=== PATIENT | female | born 1960 | race Caucasian/White ===

== ENCOUNTER 2023-07-26 19:31 | Observation (INO) | payer OTHER, SELFPAY ==
--- NOTE | ~2023-07-26 | MR_ITS ---
MRI of the brain Clinical History: Speech disturbance Technique: Axial and sagittal T1-weighted images were acquired. These were followed by axial T2-weigh erlinda, diffusion weighted, gradient, and FLAIR images. Findings: There is small focal area of restricted diffusion in the right cerebellum, compatible with acute infarct. There is additional probable small focal infarct in the right basal ganglia. No other abnormal signal seen in the brain parenchyma. Ventricles and subarachnoid spaces are unremarkable. Orbits are unremarkable. Paranasal sinuses and m astoid air cells are essentially clear. Major intracranial flow voids are intact. Sagittal midline structures are intact. IMPRESSION: Focal acute infarct in the right cerebellum, with additional probable very small focal acute infarct in the right basal ganglia. Reviewed, dictated and finalized at location M. RNAL [employer]INE SUBASSEMBLER IMPRESSION: Focal acute infarct in the right cerebellum, with additional probable very smal l focal acute infarct in the right basal ganglia.
--- NOTE | ~2023-07-26 | XR_ITS ---
EXAMINATION: XR chest 1V portable DATE: 07/26/2023 20:10 INDICATION: Slurred speech. Neurologic deficits. TECHNIQUE: frontal view of the chest was obtained. COMPARISON: Chest radiograph and CT dated 08/14/2006 FINDINGS: Calcified nodule at the left lower lung zone. No focal airspace opacities, pulmonary edema, pleural e ffusion or pneumothorax. The cardiomediastinal silhouette is normal. Bilateral breast implants. IMPRESSION: 1. No acute cardiopulmonary disease. Reviewed, dictated and finalized at location A. N'S LACROSSE COACH
--- NOTE | ~2023-07-26 | CT_ITS ---
EXAMINATION: CTA BRAIN/CAROTID DATE: 07/26/2023 20:31 INDICATION: Stroke presenting with slurred speech and neurologic deficits TECHNIQUE: Computed tomographic angiography (CTA) of the head and neck was performed with 100 mL Omni paque-350 intravenous contrast. Multiplanar reconstructions and maximum intensity projection 3D-recon structions of the carotid arteries and of the intracranial arteries were created by the technologist on a separate workstation. Precontrast CT of the head was also obtained. Automated exposure control and iterative reconstruction technique were employed.The dose-length product was 1595.78 mGy-cm. COMPARISON: None. FINDINGS: Carotid arteries: Small amount of nonhemodynamically significant atherosclerotic plaque at the normal caliber aortic ar ch and at the great vessels arising from the arch with no hemodynamically significant stenosis. No di ssection. There is 60% stenosis of the right carotid bulb relative to normal distal artery lumen diam eter (NASCET criteria). There is small amount of atherosclerotic plaque with 0% stenosis of the left carotid bulb relative to normal distal artery lumen diameter. Mild emphysema at the visualized upper lungs. Visualized superior mediastinum and cervical soft tissues are unremarkable. Postoperative arguelles ges with metallic devices at the C5-C6 and C6-C7 disc spaces with appearance favoring prosthetic disk s over anterior final fusion. Correlate with surgical history. Head: No acute intracranial hemorrhage, acute infarction or abnormal extra axial fluid collection. There is mild scattered white matter hypoattenuation consistent with chronic small vessel ischemic disease. V entricles are normal and symmetric. No mass/mass effect. No abnormally enhancing brain lesions identi fied. Orbits are normal. Mucosal thickening in the right maxillary and left ethmoid sinuses. Bilatera l mastoids are hyperpneumatized. Intracranial arteries The right vertebral artery is dominant. There is a moderate stenosis at the distal left vertebral art abi near its junction with the basilar artery. There is no hemodynamically significant stenosis in th e right vertebral basilar arteries. Atherosclerotic plaque at the bilateral carotid siphons with mult ifocal <50% stenosis. There are no aneurysms identified. Both A1 and P1 segments are patent. There i s also a patent anterior communicating artery. Cerebral arterial arborization appears symmetric. IMPRESSION: 1. 60% stenosis of the right carotid bulb relative to normal distal artery lumen diameter (NASCET cri teria). 2. Small amount of atherosclerotic plaque with 0% stenosis of the left carotid bulb relative to kacie l distal artery lumen diameter. 3. Right vertebral artery is dominant with moderate 50-70% stenosis at the distal left vertebral javier ry. 4. Atherosclerotic plaque with no hemodynamically significant stenosis at the bilateral carotid bulbs . 5. No acute intracranial process. 6. Mild emphysema. Reviewed, dictated and finalized at location A. E HAND IMPRESSION: 1. 60% stenosis of the right carotid bulb relative to normal distal artery lume n diameter (NASCET criteria). 2. Small amount of atherosclerotic plaque with 0% stenosis of the left carotid bulb relative to normal distal artery lumen diameter. 3. Right vertebral artery is dominant with moderate 50-70% stenosis at the dist al left vertebral artery. 4. Atherosclerotic plaque with no hemodynamically significant stenosis at the b ilateral carotid bulbs. 5. No acute intracranial process. 6. Mild emphysema.
[2023-07-26 19:28] VITALS: BP 207/96; PULSE 109; RESP 15; TEMP 36.9; O2SAT 96
[2023-07-26 19:29] VITALS: BP 183/80; PULSE 91; RESP 15; O2SAT 96
--- NOTE | 2023-07-26 19:39 | ECG_ITS ---
Measurements Intervals [place] Rate: 104 P: 74 PA: 133 QRS: 40 QRSD: 87 T: 72 QT: 350 QTc: 461 Interpretive Statements SINUS TACHYCARDIA OTHERWISE NORMAL ECG NO PREVIOUS ECG AVAILABLE FOR COMPARISON Electronically Signed On 07-27-2023 16:53:42 MED AIDE by Carlos Manuel Rodrigez M.D.
[2023-07-26 19:43] LABS: Glucose Point of Care 359 mg/dl (65-105)
[2023-07-26 19:54] LABS: Basophils Absolute Auto 0.1 K/mm3 (0.0-0.1); Basophils Percent Auto 1.1 % (0.2-1.2); Eosinophils Absolute Auto 0.3 K/mm3 (0-0.3); Eosinophils Percent Auto 2.1 % (0-4.4); Hemoglobin 13.6 g/dL (12.0-15.0); Immature Granulocyte Absolute 0.04 K/mm3 (0.00-0.031); Immature Granulocyte Percent A 0.3 % (0-0.5); Lymphocytes Absolute Auto 3.11 K/mm3 (0.9-3.2); Mean Corpuscular HGB Conc 33.2 g/dl (32-36); Mean Corpuscular Hemoglobin 32.4 pg (26-34); Mean Corpuscular Volume 97.6 fl (80-100); Mean Platelet Volume 10.3 fl (7.4-10.4); Monocytes Absolute Auto 0.7 K/mm3 (0.1-0.6); Monocytes Percent Auto 5.7 % (2.6-8.5); Neutrophils Absolute Auto 7.8 K/mm3 (1.3-6.7); Neutrophils Percent Auto 64.8 % (45.5-73.1); Platelet Count Result 296 k/mm3 (150-375); Red Cell Distribution Width 12.7 % (11.5-14.5)
--- NOTE | 2023-07-26 20:00 | ED.NEUROSD ---
HPI - Neuro Symptoms/Deficit General Chief Complaint: Neuro Symptoms/Deficit Stated Complaint: SLURRED SPEECH X 3 DAYS History of Present Illness HPI Narrative: patient brought to the emergency department by EMS from home. She notes for the past 3 days she has had slurred speech. Denies numbness or weakness. She had a stroke a year ago and since then she has had intermittent dizziness and leaning to the left. She also has chronic right arm paresthesias. Pt has a history of diabetes hypertension and smokes a pack cigarettes a day. She was diagnosed with an ischemic stroke a year ago. She called her primary care doctor's office today to be seen in a recommended she come to the emergency department Related Data Allergies Allergy/AdvReac Type Severity Reaction Status Date / Time codeine Allergy Mild Verified 11/28/08 11:46 Review of Systems Review of Systems: review of systems negative except what is documented in the HPI Exam Narrative: GENERAL: Well-appearing, well-nourished, and in no acute distress. HEAD: Normocephalic, atraumatic. EYES: PERRLA and EOMI. ENT: Nares clear, no rhinorrhea or epistaxis. Mucous membranes moist. NECK: Supple. CHEST: Clear to auscultation. No respiratory distress. HEART: Regular rate and rhythm. ABDOMEN: Soft, nontender, nondistended. EXTREMITIES: Normal range of motion. No edema. SKIN: Warm, dry, no rash. NEURO: No focal deficits. Alert and oriented x3. speech slurred, no facial droop, strength 4/5 bilateral upper extremities, no sensation deficit on exam, strength 4/5 left lower extremity 5/5 right lower extremity. [id number] normal PSYCH: Normal mood and affect. Course Vital Signs Vital signs: Vital Signs Temperature 36.9 C 07/26/23 19:28 Pulse Rate 109 H 07/26/23 19:28 Respiratory Rate 15 07/26/23 19:28 Blood Pressure 207/96 H 07/26/23 19:28 Pulse Oximetry 96 07/26/23 19:28 Oxygen Delivery Room Air 07/26/23 19:28 Temperature 36.9 C 07/26/23 19:28 Pulse Rate 91 07/26/23 19:29 Respiratory Rate 15 07/26/23 19:29 Blood Pressure 183/80 H 07/26/23 19:29 Pulse Oximetry 96 07/26/23 19:29 Oxygen Delivery Room Air 07/26/23 19:28 MDM - Neuro Symptoms/Deficit MDM Narrative Medical decision making narrative: CT head negative. Patient's symptoms have been persistent for the past 3 days not worsening while in the emergency department. Discussed admission with hospitalist and she requests that I consult Neurology. There is no Neurology and house until 7:00 a.m. tomorrow morning. Neurologist at [facility] states that my workup was thorough and he agrees patient can stay here until tomorrow morning. Patient admitted to the hospitalist Lab Data 07/26/23 19:44 07/26/23 19:44 Labs: Lab Results 07/26/23 07/26/23 Range/Units 19:39 19:44 WBC 12.0 H (4.5-10.0) K/mm3 RBC 4.20 (4.2-5.4) M/mm3 Hgb 13.6 (12.0-15.0) g/dL Hct 41.0 (37.0-47.0) % MCV 97.6 (80-100) fl MCH 32.4 (26-34) pg MCHC 33.2 (32-36) g/dl RDW 12.7 (11.5-14.5) % Plt Count 296 (150-375) k/mm3 MPV 10.3 (7.4-10.4) fl Immature Gran % (Auto) 0.3 (0-0.5) % Neut % (Auto) 64.8 (45.5-73.1) % Lymph % (Auto) 26.0 (18.3-44.2) % Kittson % (Auto) 5.7 (2.6-8.5) % Eos % (Auto) 2.1 (0-4.4) % Baso % (Auto) 1.1 (0.2-1.2) % Lymph # (Auto) 3.11 (0.9-3.2) K/mm3 Kittson # (Auto) 0.7 H (0.1-0.6) K/mm3 Eos # (Auto) 0.3 (0-0.3) K/mm3 Baso # (Auto) 0.1 (0.0-0.1) K/mm3 Abs Immat Gran (auto) 0.04 H (0.00-0.031) K/mm3 Absolute Neuts (auto) 7.8 H (1.3-6.7) K/mm3 Absolute Nucleated RBC 0.0 (0.0-0.012) K/mm3 Nucleated RBC % 0.0 (0.0-0.2) % PT 12.3 (11.1-14.7) Seconds INR 0.9 APTT 31.1 (22.3-36.8) SECONDS Sodium 134 L (137-145) mmol/L Potassium 4.0 (3.4-5.0) mmol/L Chloride 98 (98-107) mmol/L Carbon Dioxide 28 (22-30) mmol/L Anio
[2023-07-26 20:05] LABS: Alanine Aminotransferase 38 U/L (6-35); Albumin Level 4.2 g/dL (3.5-5.1); Alkaline Phosphatase 104 U/L (38-126); Anion Gap 8 mmol/L (8-16); Aspartate Amino Transferase 26 U/L (14-36); Bilirubin,Total 0.4 mg/dL (0.2-1.3); Blood Urea Nitrogen 18 mg/dL (7-17); Calcium 9.2 mg/dL (8.4-10.2); Carbon Dioxide 28 mmol/L (22-30); Chloride 98 mmol/L (98-107); Estimated CRCL calculation 75 ml/min; Estimated Glomerular Filt Rate > 60; Glucose 358 mg/dL (65-110); Sodium 134 mmol/L (137-145)
[2023-07-26 20:09] LABS: INR 0.9; Prothrombin Time 12.3 Seconds (11.1-14.7)
[2023-07-26 20:10] LABS: Partial Thromboplastin Time 31.1 SECONDS (22.3-36.8)
[2023-07-26 20:17] LABS: Troponin I < 0.012 ng/mL (0.000-0.034)
[2023-07-26] MEDS: LABETALOL HCL INJ 100 MG/20 ML VIAL 10 MG IV PUSH (20:30)
[2023-07-26] MEDS: ASPIRIN 81 MG CHEWABLE TABLET 324 MG PO (20:30)
--- NOTE | 2023-07-27 00:03 | PM.IMHP ---
H&P: HPI History of Present Illness Date/Time: 07/27/23 00:03 Chief Complaint: Speech Narrative: This is a 62 yo female with PMHx significant for Tobacco dependence, ETOH dependence, insulin dependent diabetes mellitus, HTN.Patient presents to ED due to a speech disturbance patient has had is liver speech for 4 days, denies any focal sensorimotor deficit however states that has had some gait disturbance which has been present for the last few weeks has been talked about a with her primary care physician yesterday she was prompted to come in by her primary care physician after her speech disturbance. Patient denies any tremors, denies loss of consciousness, denies vision loss, has had a headache, no fevers, no rigors, no chills, no cough, no sputum production, no pain or burning with urination, no nausea no vomiting no diarrhea no abdominal pain no leg swelling no palpitations no shortness of breath. Preliminary workup has been essentially nonrevealing. EXAMINATION: XR chest 1V portable DATE: 07/26/2023 20:10 INDICATION: Slurred speech. Neurologic deficits. TECHNIQUE: frontal view of the chest was obtained. COMPARISON: Chest radiograph and CT dated 08/14/2006 FINDINGS: Calcified nodule at the left lower lung zone. No focal airspace opacities, pulmonary edema, pleural effusion or pneumothorax. The cardiomediastinal silhouette is normal. Bilateral breast implants. IMPRESSION: 1. No acute cardiopulmonary disease. EXAMINATION: CTA BRAIN/CAROTID DATE: 07/26/2023 20:31 INDICATION: Stroke presenting with slurred speech and neurologic deficits TECHNIQUE: Computed tomographic angiography (CTA) of the head and neck was performed with 100 mL Omnipaque-350 intravenous contrast. Multiplanar reconstructions and maximum intensity projection 3D-reconstructions of the carotid arteries and of the intracranial arteries were created by the technologist on a separate workstation. Precontrast CT of the head was also obtained.? Automated exposure control and iterative reconstruction technique were employed.The dose-length product was 1595.78 mGy-cm. COMPARISON: None. ? FINDINGS: Carotid arteries: Small amount of nonhemodynamically significant atherosclerotic plaque at the normal caliber aortic arch and at the great vessels arising from the arch with no hemodynamically significant stenosis. No dissection. There is 60% stenosis of the right carotid bulb relative to normal distal artery lumen diameter (NASCET criteria). There is small amount of atherosclerotic plaque with 0% stenosis of the left carotid bulb relative to normal distal artery lumen diameter. Mild emphysema at the visualized upper lungs. Visualized superior mediastinum and cervical soft tissues are unremarkable. Postoperative changes with metallic devices at the C5-C6 and C6-C7 disc spaces with appearance favoring prosthetic disks over anterior final fusion. Correlate with surgical history. Head: No acute intracranial hemorrhage, acute infarction or abnormal extra axial fluid collection. There is mild scattered white matter hypoattenuation consistent with chronic small vessel ischemic disease. Ventricles are normal and symmetric. No mass/mass effect. No abnormally enhancing brain lesions identified. Orbits are normal. Mucosal thickening in the right maxillary and left ethmoid sinuses. Bilateral mastoids are hyperpneumatized. Intracranial arteries The right vertebral artery is dominant. There is a moderate stenosis at the distal left vertebral artery near its junction with the basilar artery. There is no hemodynamically significant stenosis in the right vertebral basilar arteries. Atherosclerotic plaque at the bilateral carotid siphons with multifocal <50% stenosis. There are no aneurysms identified.? Both A1 and P1 segments are patent. There is also a patent anterior communicating artery. Cerebral arterial arborization appears symmetric. IMPRESSION: 1. 60% stenosis of the right carotid bulb relat
[2023-07-27 03:06] VITALS: PULSE 103; RESP 15; O2SAT 96
--- NOTE | 2023-07-27 03:15 | ADMGEN ---
This patient, Irene Garcia, was admitted to [facility] Surg Room 304-01. Patient/family oriented to hospital policies and general routines including ID bracelet, bed and alarms, visiting hours, pain management, procedures, bathroom and other care routines, personal items, smoking policy, room service/diet, and visiting hours. Information on how to activate the Rapid Response Team has been discussed. Patient/Family are encouraged to report perceived risks to care and to ask questions if they do not understand what they are told or what they should do.
[2023-07-27 03:28] VITALS: BP 149/64; PULSE 89; RESP 18; TEMP 36.8; O2SAT 95; BMI 19.7
[2023-07-27 04:00] VITALS: PULSE 87
[2023-07-27 06:00] VITALS: BP 151/49; PULSE 89; RESP 18; TEMP 36.7; O2SAT 92
[2023-07-27 07:50] LABS: Glucose Point of Care 310 mg/dl (65-105)
[2023-07-27 07:59] LABS: Cholesterol 172 mg/dL (0-200); HDL Direct 66 mg/dL; Triglycerides 159 mg/dL (<150)
[2023-07-27 08:00] VITALS: PULSE 90
[2023-07-27 08:01] LABS: Hemoglobin A1C 10.5 % (<5.7)
[2023-07-27 08:11] LABS: LDL Cholesterol Direct 74 mg/dL
[2023-07-27] MEDS: INSULIN GLARGINE (*BKC) 100 UNITS/ML 10 UNITS SUB-Q (08:52)
[2023-07-27] MEDS: INSULIN ASPART (*BKC) 100 UNITS/ML SUB-Q ×2 (08:53→12:34)
[2023-07-27] MEDS: ENOXAPARIN 40 MG/0.4 ML SYRINGE SUB-Q (08:54)
[2023-07-27] MEDS: LOSARTAN POTASSIUM 50 MG TABLET PO (08:54)
[2023-07-27] MEDS: ASPIRIN 81 MG CHEWABLE TABLET PO (08:54)
[2023-07-27 11:36] LABS: Free T4 Free Thyroxine Reflex 1.24 ng/dL (0.78-2.19)
[2023-07-27 12:00] VITALS: PULSE 90
--- NOTE | 2023-07-27 12:26 | WPDNEURCNPN ---
Assessment and Plan Assessment and plan (1) Diabetes mellitus: Code(s): E11.9 - Type 2 diabetes mellitus without complications Status: Acute (2) Hypertension: Code(s): I10 - Essential (primary) hypertension Status: Acute (3) Tobacco dependence: Code(s): F17.200 - Nicotine dependence, unspecified, uncomplicated Status: Acute (4) Cerebrovascular accident: Qualifiers: CVA mechanism: unspecified Qualified Code(s): I63.9 - Cerebral infarction, unspecified Code(s): I63.9 - Cerebral infarction, unspecified Status: Acute (5) TIA (transient ischemic attack): Code(s): G45.9 - Transient cerebral ischemic attack, unspecified Status: Acute Plan 1. Focal acute infarct in the right cerebellum in addition to very small focal acute infarct in the right basal ganglia. 2. 60% stenosis of the right carotid bulb relatively normal distal artery lumen. Moderate 50 to 70% stenosis at the distal left vertebral artery as well 3. small amount of atherosclerotic plaque with 0% stenosis of the left carotid bulb 4. Dominant right vertebral artery with moderate 50 to 70% stenosis the left vertebral artery. 5. Patient to take aspirin 81mg daily and Plavix 75mg daily in addition to the atorvastatin 20mg daily and also follow-up with the vascular surgeon for the ongoing recommendation if any stenting procedure can be done otherwise she also need to follow with a neurologist Dr. Guthrie. Consult date: 07/27/23 HPI: Irene Garcia is a 62 year old female Brought to the emergency department by EMS from home with information that over the last several days she has noted slurred speech without any numbness or weakness of 1 side or other side she has had a stroke a year ago and has been having intermittent dizziness particularly when leaning to the left side in addition she has chronic right upper extremity paresthesias she is known to have diabetes mellitus, hypertension, she was diagnosed to have ischemic stroke in the past she called her primary physician who advised her to come to the emergency room. She is allergic to codeine. Her initial exam in the emergency room was normal vital signs reveal blood pressure of 207/96 with pulse of 109 though she was afebrile CBC was normal basic metabolic panel with sodium 134 but glucose of 358, chest x-ray was negative, head neck CTA documented 60% stenosis of the right carotid bulb relatively normal distal artery lumen, right vertebral artery was dominant with moderate 50 to 70% stenosis of the distal left vertebral artery atherosclerotic plaque were noted but no hemodynamically significant stenosis at the bilateral carotid bulb [facility] Family History Family History (Updated 07/27/23 @ 03:32 by Jez Begrer RN) Father Throat cancer Lung cancer Malignant neoplasm of prostate Mother Throat cancer COPD (chronic obstructive pulmonary disease) Heart disease Social History Social History Smoking packs per day: 1 Smoking cigarettes per day: 20.0 Years smoked: 47 Smoking pack-years: 47.00 Smoking status: Current every day smoker Tobacco type: cigarettes Alcohol intake: current Drinks per week: 42 Substance use: never Lack of Transportation: No Lack of Food: Never True Current Housing: I Have Housing Concerned About Future Housing: No Difficulty Paying Gas/Electric Bills: No Difficulty Paying for Meds: No Currently Unemployed: No Education: Associate Degree Difficulty w/ Childcare or Family Care: No Spiritual care concerns: No Meds Home Medications and Allergies Home Medications Medication Instructions Recorded Confirmed Type insulin glargine 100 unit/mL (3 8 unit subcut HS 07/27/23 07/27/23 History mL) subcutaneous pen (Lantus Solostar U-100 Insulin) insulin glargine 100 unit/mL (3 10 unit subcut QAM 07/27/23 07/27/23 History mL) subcutaneous pen (Lantus Solostar U-100 Insuli
[2023-07-27 12:34] LABS: Total Triiodothyronine (T3) 1.15 NG/ML (0.97-1.69)
[2023-07-27] MEDS: CLOPIDOGREL BISULFATE 75 MG TABLET PO (12:35)
[2023-07-27 12:47] LABS: Glucose Point of Care 266 mg/dl (65-105)
--- NOTE | 2023-07-27 13:39 | PM.DS ---
DS: Admitting Diagnosis Discharge Date 07/27/23 Admitting Diagnosis Altered speech DS: Discharge Diagnosis Discharge Diagnosis (1) Cerebrovascular accident: Qualifiers: CVA mechanism: unspecified Qualified Code(s): I63.9 - Cerebral infarction, unspecified Code(s): I63.9 - Cerebral infarction, unspecified Status: Acute (2) Disturbance in speech: Code(s): R47.9 - Unspecified speech disturbances Status: Acute (3) Tobacco dependence: Code(s): F17.200 - Nicotine dependence, unspecified, uncomplicated Status: Acute (4) Alcohol dependence: Code(s): F10.20 - Alcohol dependence, uncomplicated Status: Acute (5) Hypertension: Code(s): I10 - Essential (primary) hypertension Status: Acute (6) Diabetes mellitus: Code(s): E11.9 - Type 2 diabetes mellitus without complications Status: Acute (7) Carotid stenosis: Code(s): I65.29 - Occlusion and stenosis of unspecified carotid artery Status: Acute DS: Summary Hospital Course Reason for hospitalization: 62yo female with HTN, DM, tobaaco and alcohol abuse here for speech disturbance. Please see H&P for details. Hospital Course: Patient presented with a 4 day history of speech disturbance. No other focal complaints. She has chronic right hand and anastacio-oral numbness. BP was 207/96 on admission that did improve. EKG was normal except with mild tachycardia at 104. CXR was clear. CTA head/neck showing 60% stenosis right carotid bulb with 0% stenosis left carotid bulb. Right vertebral artery dominant. Distal left vertebral showing 50-70% stenosis. Brain MRI showing focal acute infarct in the right cerebellum and probably very small focal acute infarct in the right basal ganglia. WBC mildly elevated. Glucose poorly controlled and A1c 10.7%. LDL 74. TSH 4.85 but normal FT4. She was educated about the benefits of abstaining from tobacco and alcohol. She stop lipitor due to blood in her urine a few years ago. She has been off aspirin for about 1 year. She is up ambulating to the bathroom. Her speech is improved. She overall did well and was able to be discharged home on 07/27/23 Status at Discharge Cognitive/behavioral status at discharge: stable Time Spent with Patient Time attestation: Total time spent providing and/or coordinating discharge services: 35 minutes Time spent: Greater than 30 minutes Exam Narrative: AF 98.1 151/49 90 18 92% ra Gen - NARD Chest - distant clear BS. prolonged expiratory phase CV - RRR S1/S2. Tele showing no significant dysrhythmias Abd - Soft, NT/ND, Positive BS Ext - No pedal edema Neuro - Alert and oriented. Nonfocal exam. Psych - Nml mood and affect Skin - Warm and dry DS: Data Data Completed and Pending Labs on day of discharge: Labs from last 24 hours 07/27/23 07/27/23 07/27/23 11:46 07:45 07:24 WBC RBC Hgb Hct MCV MCH MCHC RDW Plt Count MPV Immature Gran % (Auto) Neut % (Auto) Lymph % (Auto) Ellis % (Auto) Eos % (Auto) Baso % (Auto) Lymph # (Auto) Ellis # (Auto) Eos # (Auto) Baso # (Auto) Abs Immat Gran (auto) Absolute Neuts (auto) Absolute Nucleated RBC Nucleated RBC % PT INR APTT Sodium Potassium Chloride Carbon Dioxide Anion Gap BUN Creatinine Estim Creat Clear Calc Estimated GFR Glucose POC Capillary Glucose 266 H 310 H Hemoglobin A1c 10.5 H Calcium Total Bilirubin AST ALT Alkaline Phosphatase Troponin I Total Protein Albumin Triglycerides 159 H Cholesterol 172 LDL Cholesterol Direct 74 HDL Direct 66 TSH (Reflex) 4.850 H Free T4 1.24 Total T3 1.15 07/26/23 07/26/23 19:44 19:39 WBC 12.0 H RBC 4.20 Hgb 13.6 Hct 41.0 MCV 97.6 MCH 32.4 MCHC 33.2 RDW 12.7 Plt Count 296 MPV 10.3 Immature Gran % (A
== END 2023-07-27 14:20 | disposition home or self-care (01) ==
LOC: ANHED 07-27 00:49 → ANH3MEDSUR 07-27 02:18
PROVIDERS: Admitting Provider Internal Medicine; Emergency Provider Emergency Medicine; PCP Family Medicine; Visit Provider Internal Medicine
DX: I63.9 Cerebral infarction, unspecified (principal); R29.702 NIHSS score 2; E11.9 Type 2 diabetes mellitus without complications; I10 Essential (primary) hypertension; F17.210 Nicotine dependence, cigarettes, uncomplicated; F10.20 Alcohol dependence, uncomplicated; I69.398 Other sequelae of cerebral infarction; Z79.4 Long term (current) use of insulin
CPT/HCPCS: 36415; 70496; 70498; 70551; 71045; 80053; 80061; 82948; 83036; 84439; 84443; 84480; 84484; 85025; 85610; 85730; 93005; 96372; 96374; 99285; A9270; G0378; J1650; J1815; Q9967